=== PATIENT | female | born 1990 | race Caucasian/White ===

== ENCOUNTER 2023-01-12 19:40 | Emergency (ER) | payer OTHER ==
[2023-01-12 19:44] VITALS: BP 119/80; PULSE 83; RESP 20; TEMP 97.6; BMI 38.0
[2023-01-12] MEDS ORDERED: PENICILLIN V POTASSIUM 500 MG TABLET PO ONE (20:32)
[2023-01-12] MEDS ORDERED: DEXAMETHASONE LIQUID 0.5 MG/5 ML PO ONE (20:32)
[2023-01-12] MEDS ORDERED: DEXAMETHASONE 4 MG TABLET (FP) ONE (20:36)
== END 2023-01-12 21:20 | disposition home or self-care (01) ==
LOC: JER 19:40 → JERFT 19:40 → JER 21:20
DX: R07.0 Pain in throat (principal); R13.10 Dysphagia, unspecified; R09.81 Nasal congestion; R11.10 Vomiting, unspecified; J02.0 Streptococcal pharyngitis
CPT/HCPCS: 87651; 99283-25